=== PATIENT | female | born 1960 | race Caucasian/White ===

== ENCOUNTER 2020-04-08 09:40 | Outpatient (CLI) | payer BC ==
--- NOTE | 2020-04-08 10:22 | CT ---
CT CHEST WITHOUT CONTRAST CLINICAL INDICATION: Follow-up solitary pulmonary nodule COMPARISON: 03/13/2019 and 06/06/2018 FINDINGS: Aorta: Lack of intravenous contrast limits evaluation of the vascular structures. Vascular calcificat ions are seen in the aortic arch and utilized proximal abdominal aorta. Lungs: Previously described 9 mm pulmonary nodule with eccentric calcification seen in the posterior inferior right upper lobe adjacent to the junction of the major and minor fissure is again seen and unchanged in size compared to prior exams. An additional very tiny oval-shaped subcentimeter nodule i s seen in the lateral aspect superior segment right lower lobe also unchanged in size or appearance. Linear areas of scarring and/or atelectasis are seen in the medial aspect of the right upper lobe and involving the right middle lobe and at each lung base. No pleural effusion is seen. Large airways demonstrate no filling defect and appear patent. Mediastinum: There is suggestion of minimal pericardial thickening similar to prior studies. Evaluati on limited due to lack of intravenous contrast, but no definite enlarged lymph nodes are seen. Thyroid gland: Not well assessed on this nonenhanced CT exam. Osseous structures: Postoperative changes lower cervical spine related to anterior cervical fusion ar e seen. No suspicious lytic or sclerotic osseous lesions are identified. Chest wall: No abnormality visualized. Upper abdomen: Postoperative changes stomach are again seen. There is stable subcentimeter too small to characterize hypodense lesion in the anterior aspect lateral segment left hepatic lobe. IMPRESSION: 1. Stable size of right upper lobe pulmonary nodule with eccentric calcification which measures appro ximately [address] scan may be helpful for further evaluation versus continued follow-up in 6 months to one year.
== END 2020-04-08 09:41 | disposition home or self-care (01) ==
LOC: BICCT 09:40
PROVIDERS: ATTEND Internal Medicine Critical Care Medicine
DX: R91.1 Solitary pulmonary nodule (principal)
CPT/HCPCS: 71250